=== PATIENT | female | born 1975 | race Caucasian/White ===

== ENCOUNTER 2021-11-22 10:59 | Day surgery (SDC) | payer MEDICAID ==
[~2021-11-22] VITALS: Ht 167.6 cm; Wt 95.9 kg
[2021-11-22] MEDS ORDERED: LIDOcaine 1% 30ml preserv. free vial SQ STA (11:16)
[2021-11-22] MEDS ORDERED: ATOR40TA72 PO (11:25)
[2021-11-22] MEDS ORDERED: OXYB10TA30 PO (11:25)
[2021-11-22] MEDS ORDERED: VENL-191 PO (11:25)
[2021-11-22 11:28] VITALS: BP 125/76
[2021-11-22 12:20] VITALS: BP 125/76
[2021-11-22 12:43] VITALS: BP 117/67
== END 2021-11-22 12:55 | disposition home or self-care (01) ==
LOC: SSTAY O 10:59
PROVIDERS: ATTEND Radiology Vascular & Interventional Radiology
DX: R22.1 Localized swelling, mass and lump, neck (principal); Z88.0 Allergy status to penicillin; Z79.899 Other long term (current) drug therapy; Z98.890 Other specified postprocedural states
CPT/HCPCS: 10005; 87811; J3490; 10007